=== PATIENT | female | born 1985 | race American Indian/Alaskan Native ===

== ENCOUNTER 2018-11-23 07:19 | Emergency (ER) | payer MEDICAID, OTHER ==
--- NOTE | 2018-11-23 07:38 | C.PDOC ---
History Of Present Illness PRESCREEN FOR ETOH AND PCP ABUSE. STATES LAST USE 2 DAYS AGO. EGA 20 WKS, ON LABETALOL FOR HTN. DID NOT TAKE ROUTINE DOSE THIS MORNING. NO ABD PAIN, VB OR OTHER ASSOC SX. [place] @ [facility] [place] NAD PSYCH CALM COOPERATIVE NO ACUTE INTOX/WITHDRAWAL NO SI/SA, PSYCHOSIS ABD NEG REMAINDER NEG Time Seen by Provider: 11/23/18 07:31 Chief Complaint (Nursing): Substance Abuse History Per: Patient History/Exam Limitations: no limitations Past Medical History Reviewed: Historical Data, Nursing Documentation, Vital Signs Vital Signs: Last Vital Signs Temp 97.9 F 11/23/18 07:24 Pulse 83 11/23/18 07:24 Resp 18 11/23/18 07:24 BP 173/101 H 11/23/18 07:24 Pulse Ox 98 11/23/18 07:24 - Medical History PMH: HTN Other Surgeries: Hx of surgeries Family History: States: No Known Family Hx - Social History Hx Alcohol Use: Yes Hx Substance Use: Yes (PCP) - Immunization History Hx Tetanus Toxoid Vaccination: No Hx Influenza Vaccination: No Hx Pneumococcal Vaccination: No Review Of Systems Except As Marked, All Systems Reviewed And Found Negative. Constitutional: Negative for: Fever, Chills Psych: Negative for: Suicidal ideation Physical Exam - Physical Exam Appears: No Acute Distress Skin: Normal Color, Warm, Dry Head: Atraumatic, Normacephalic Eye(s): bilateral: Normal Inspection Neck: Supple Chest: Symmetrical Cardiovascular: Rhythm Regular Respiratory: Normal Breath Sounds, No Rales, No Rhonchi, No Wheezing Gastrointestinal/Abdominal: Normal Exam, Soft, No Tenderness, No Guarding, No Rebound Neurological/Psych: Oriented x3, Other (psych: calm, cooperative, no acute intoxication/withdrawal, no SI/SA, no pyschosis) ED Course And Treatment - Laboratory Results Result Diagrams: 11/23/18 08:54 11/23/18 08:54 O2 Sat by Pulse Oximetry: 98 (RA) Pulse Ox Interpretation: Normal Progress - Re-Evaluation Re-evaluation Note: 11/23/18 09:59 BP IMPROVED SP ROUTINE DOSE LABETALOL. MED CLEAR FOR DETOX. CRISIS NOTIFIED. RECOMMEND CONTINUE CURRENT MEDS PRESCRIBED, OBGYN AND/OR MED CONSULT NEEDED 11/23/18 10:[address] ALBERTO PT NOT A CANDIDATE FOR DETOX ADMISSION. OUTPT INFO GIVEN BY CRISIS - Data Reviewed Data Reviewed: Lab, Old records Medical Decision Making Medical Decision Making: Plan: --Labs --UA Disposition Counseled Patient/Family Regarding: Studies Performed, Diagnosis, Need For Follo wup - Disposition Referrals: OUTPATIENT,DETOX [Other] Disposition: HOME/ ROUTINE Disposition Time: 10:29 Condition: GOOD Instructions: Drug Abuse and Drug Addiction (DC) Forms: [employer] ([place]) - Clinical Impression Clinical Impression: Drug abuse - Scribe Statement The provider has reviewed the documentation as recorded by the Royceibe Jaimee Gary Provider Attestation: All medical record entries made by the Scribe were at my direction and personally dictated by me. I have reviewed the chart and agree that the record accurately reflects my personal performance of the history, physical exam, medical decision making, and the department course for this patient. I have also personally directed, reviewed, and agree with the discharge instructions and disposition.
[2018-11-23 08:58] LABS: BASO # 0.1 K/uL (0.0-0.2); BASO % 0.4 % (0.0-2.0); EOS # 0.2 K/uL (0.0-0.7); EOS % 1.3 % (0.0-4.0); HEMOGLOBIN 11.1 g/dL (11.0-16.0); LYMPH # 1.9 K/uL (1.0-4.3); MEAN CORPUSCULAR HEMOGLOBIN 31.2 pg (27.0-31.0); MEAN CORPUSCULAR HGB CONC 33.9 g/dL (33.0-37.0); MEAN PLATELET VOLUME 9.4 fL (7.2-11.7); MONO # 0.5 K/uL (0.0-0.8); MONO % 3.6 % (0.0-10.0); NEUT # 11.6 K/uL (1.8-7.0); NEUT % 81.7 % (50.0-75.0); NRBC % 0.1 % (0.0-2.0); RBC 3.56 Mil/uL (3.80-5.20); RED CELL DISTRIBUTION WIDTH 13.4 % (11.5-14.5); WHITE BLOOD COUNT 14.2 K/uL (4.8-10.8)
[2018-11-23 09:11] LABS: ALB/GLOB RATIO 1.2 (1.0-2.1); ALBUMIN 3.5 g/dL (3.5-5.0); ALT/SGPT 8 U/L (9-52); AST/SGOT 26 U/L (14-36); BLOOD UREA NITROGEN 11 mg/dL (7-17); CALCIUM 9.1 mg/dl (8.6-10.4); GFR NON-AFRICAN AMERICAN > 60
[2018-11-23 09:19] LABS: SQUAMOUS EPITHIAL 7 /hpf (0-5); URINE BACTERIA RARE (<OCC); URINE BILIRUBIN NEGATIVE (NEGATIVE); URINE BLOOD NEGATIVE (NEGATIVE); URINE CLARITY Hazy (Clear); URINE COLOR Yellow (YELLOW); URINE GLUCOSE (UA) NORMAL (Normal); URINE LEUKOCYTE ESTERASE NEG Leu/uL (Negative); URINE PROTEIN NEGATIVE (NEGATIVE); URINE UROBILINOGEN NORMAL mg/dL (0.2-1.0)
[2018-11-23 09:35] LABS: BARBITURATES, UR NEGATIVE (NEGATIVE); BENZODIAZEPINES, UR NEGATIVE (NEGATIVE); OPIATES, UR NEGATIVE (NEGATIVE)
[2018-11-23 09:40] LABS: PHENCYCLIDINE, UR POSITIVE (NEGATIVE)
[2018-11-23 09:45] VITALS: TEMP 98.5
[2018-11-23 11:09] VITALS: BP 127/81; PULSE 65; RESP 18; O2SAT 99
== END 2018-11-23 11:46 | disposition home or self-care (01) ==
LOC: C.ER 07:19
DX: F19.10 Other psychoactive substance abuse, uncomplicated (principal); O26.92 Pregnancy related conditions, unspecified, second trimester; Z3A.20 20 weeks gestation of pregnancy